=== PATIENT | female | born 1995 | race Hispanic/Latino ===

== ENCOUNTER 2022-01-31 04:39 | Inpatient (IN) | payer OTHER, SELFPAY ==
--- OUTSIDE RECORDS SUMMARY | 2022-01-31 05:49 | XMS REPORT | Continuity of Care Document ---
:1995 Author Organization [facility] t Address [facility] [place] [address] Care Team Providers Name Role Phone Tavia Meredith Primary Care Physician INDUCTION Attending Clinician Unavailable LOEWENTHAL Attending Clinician Unavailable LOEWENTHAL Attending Clinician Unavailable Provider, Temp Attending Clinician Unavailable Tavia PACE Attending Clinician Unavailable Tavia Meredith Attending Clinician Lab Attending Clinician Unavailable Celina Quiros Attending Clinician Celina MARROQUIN Attending Clinician Unavailable Payers Payer Name Policy Type Policy Number Effective Date Expiration Date [facility] [id number] 2021 MOM CHIP MICHELLE LOW 00:00:00 [employer] Problems Condition Condition Condition Status Onset Resolution Last Treating Co mments Source Name Details Category Date Date Treatment Clinician Date Headache Headache Disease Active Unive [place] 3[place] Placenta Placenta Disease Active Overview: Un veda previa in previa in 2-02 Formattin i ty of second second 00:00: g of this [place] trimester trimester 00 note [facility] might be Branch different from the original. lateral previa see usg report 09/2021, resolved Supervisio Supervisio Disease Active 2020-07 U ximena n of n of 2-20 ity of high[place]risk [place] [facility] Branch Obesity in Obesity in Disease Active 2020-07 U nivers 2-20 ity of 00:00: [place] 00 Medical Branch Multiparit Multiparit Disease Active 2020-07 U nivers y y 2-20 ity of 00:00: [place] [address] Medical [place] Allergies, Adverse Reactions, Alerts Allergy Allergy Status Severity Reaction(s) Onset Inactive Treating Comm ents Source Name Type Date Date Clinician NO KNOWN Drug Active Univers ALLERGIE Class ity of S [facility] Social History Social Habit Start Date Stop Date Quantity Comments Source ASSERTION 2021-05-18 University of 00:00:00 [place] [facility] History SDOH University o f Alcohol Std [place] Medical Drinks Branch History SDOH University o f Alcohol Binge [place] Medic al Branch History SDNV University o f Alcohol Comment [place] Med ical Branch Exposure to 2022-01-18 2022-01-28 Not sure [facility] SARS-CoV-2 00:00:00 15:02:00 [facility] (event) Branch Alcohol intake 2022-01-28 2022-01-28 Lifetime University of 00:00:00 00:00:00 non-drinker [facility] (finding) [place] Tobacco use and 2022-01-21 2022-01-21 Smokeless tobacco Un iversity of exposure 00:00:00 00:00:00 non-user [facility] History SDOH 2021-06-29 2021-06-29 1 University o f Alcohol Frequency [facility]:00:00 [facility] [place] Sex Assigned At [birth year] Universit y of 00:00:00 00:00:00 [facility] Smoking Status Start Date Stop Date Source Never smoked tobacco [facility] Medications Ordered Filled Start Stop Current Ordering Indication Dosage Frequency Signature Comments Components Source Medication Medication Date Date Medication? Clinician (SIG) Name Name proMETHazin 2020-07 Yes [id number] 25mg Take 1 Univers e 25 mg 2-20 tablet by ity of tablet 00:00: mouth [place] 00 every 6 Medical (six) Branch hours as needed for Nausea and Vomiting (N/V). proMETHazin 2020-07 Yes [id number] 25mg Take 1 Univers e 25 mg 2-20 tablet by ity of tablet 00:00: mouth [place] 00 every 6 Medical (six) Branch hours as needed for Nausea and Vomiting (N/V). proMETHazin 2020-07 Yes [id number] 25mg Take 1 Univers e 25 mg 2-20 tablet by ity of tablet 00:00: mouth [place] 00 every 6 Medical (six) Branch hours as needed for Nausea and Vomiting (N/V). proMETHazin 2020-07 Yes [id number] 25mg Take 1 Univers e 25 mg 2-20 tablet by ity of tablet 00:00: mouth [place] 00 every 6 Medical (six) Branch hours as needed for Nausea and Vomiting (N/V). Immunizations Ordered Filled Immunization Date Status Comments [facility] e Immunization Name Name TDAP 2021-11-25 Completed University of 00:00:00 [facility] TDAP 2021-11-25 Completed University of 00:00:00 [facility] TDAP 2021-11-25 Completed University of 00:00:00 [facility] TDAP 2021-11-25 Completed University of 00:00:00 [facility] Influenza Virus 2021-06-29 Completed Universit y of Vaccine Quad .5 mL 00:00:00 [facility] 6+ MO Branch PPD (TB) 2021-06-29 Completed University of 00:00:00 [facility] Influenza Virus 2021-06-29 Completed Universit y of Vaccine [place] .5 mL 00:00:00 [facility] 6+ MO Branch PPD (TB) 2021-06-29 Completed University of 00:00:00 [facility] Influenza Virus 2021-06-29 Completed Universit y of Vaccine [place] .5 mL 00:00:00 [facility] 6+ MO Branch PPD (TB) 2021-06-29 Completed University of 00:00:00 [facility] Influenza Virus 2021-06-29 Completed Universit y of Vaccine [place] .5 mL 00:00:00 [facility] 6+ MO Branch PPD (TB) 2021-06-29 Completed University of 00:00:00 [facility] Vital Signs Vital Name Observation Time Observation Value Comments Source Systolic blood 2022-01-28 20:03:00 120 mm[Hg] Univer sity of pressure [facility] Diastolic blood 2022-01-28 20:03:00 80 mm[Hg] Unive rsity of pressure [facility] Heart rate 2022-01-28 20:00:00 105 /min [facility] Body temperature 2022-01-28 20:00:00 36.06 [facility] Univ ersity of [facility] Respiratory rate 2022-01-28 20:00:00 18 /min Univ ersity of [facility] Body height 2022-01-28 20:00:00 162.6 cm Universi ty of [facility] Body weight 2022-01-28 20:00:00 93.713 kg Universi ty of [facility] BMI 2022-01-28 20:00:00 35.46 kg/m2 Universi ty [facility] Systolic blood 2022-01-21 18:25:00 116 mm[Hg] Univer sity of pressure [facility] Diastolic blood 2022-01-21 18:25:00 73 mm[Hg] Unive rsity of pressure [facility] Heart rate 2022-01-21 18:25:00 93 /min Universi ty of [facility] Body temperature 2022-01-21 18:25:00 36.33 [facility] Res[facility] rate 2022-01-21 18:25:00 18 /min [facility] ersity of [facility] Body height 2022-01-21 18:25:00 162.6 cm Universi ty of [facility] Body weight 2022-01-21 18:25:00 93.441 kg Universi ty of [facility] BMI 2022-01-21 18:25:00 35.36 kg/m2 Universi ty [facility] Procedures Procedure Date / Time Performed Performing Clinician Sourc e POCT URINALYSIS 2022-01-28 20:05:00 Cynthia Pace [facility] POCT URINALYSIS 2022-01-21 18:28:00 Cynthia Pace [facility] Encounters Start End Encounter Admission Attending Care Care Encounter Source Date/Time Date/Time Type Type Clinicians Facility Department ID 2022-02-04 2022-02-04 Outpatient INDUCTION, [facility] [id number] Univers 19:30:00 19:30:00 [facility] [id number] [facility]22-[facility] 2022-01-28 Outpatient R QUEENIE NIXON [facility] [id number] Univers 14:45:00 16:03:35 [facility] 2022-01-28 2022-01-28 Routine Provider, Glenn [facility] [id number] Univers 14:45:00 16:03:35 Queenie Nixon SENIOR ADMINISTRATIVE ASSOCIATE [id number] ity of Visit REGIONAL [id number] Jean as MATERNAL [id number] [facility] & CHILD [address] [place] [address] 2022-01-28 2022-01-28 Outpatient R [facility] [id number] Univers 14:45:00 14:45:00 [id number] ity [facility] 2022-01-25 2022-01-25 Outpatient R [facility] [id number] Univers 14:45:00 14:45:00 CYNTHIA [id number] tyrelly o [facility] 2022-01-21 2022-01-21 [facility] [id number] Univers 13:00:00 13:42:06 CYNTHIA villarreal o [facility] 2022-01-21 2022-01-21 Routine [facility] [id number] Univers 13:00:00 13:42:06 Cynthia Squires SENIOR ADMINISTRATIVE ASSOCIATE [id number] ity of Visit REGIONAL [id number] Jean as MATERNAL [id number] [facility] & [address] 2022-01-18 2022-01-18 Pupil Personnel Worker Lab, Glenn [facility] [id number] Univers 13:15:00 13:30:00 Visit Renee Marroquin SENIOR ADMINISTRATIVE ASSOCIATE [id number] ity of REGIONAL [id number] Jean as MATERNAL [id number] [facility] & CHILD [address] [place] [address] 2022-01-18 2022-01-18 Outpatient R RENEE MARROQUIN [facility] [id number] Univers 13:15:00 13:15:00 RENEE MARROQUIN [facility] 2022-01-15 2022-01-15 [facility] [id number] Univers 00:00:00 00:00:00 Cynthia C SENIOR ADMINISTRATIVE ASSOCIATE [id number] [facility] [id number] Jean as MATERNAL [id number] [facility] ical & CHILD [address] [place] [address] Results Test Description Test Time Test Comments Results Result Comments Source POCT URINALYSIS W SPECIFIC GRAVITY 2022-01-28 20:05:00 Test Item Value Reference Range Interpretation Comme nts POCT U SP GRAV (test code = 3255) * 1.005-1.025 POCT PH U (test code = 3254) * 5-8 POCT U LEUK EST (test code = 3263) * Negative - Negative POCT U NIT (test code = 3262) * Negative - Negative POCT U PROT (test code = 3259) trace Negative - Negative POCT U GLU (test code = 3256) negative Negative - Negative POCT U KETONE (test code = 3258) * Negative - Negative POCT U UROBILI (test code = 3260) * 0.2-1 POCT U BILI (test code = 3261) * Negative - Negative POCT U BLD (test code = 3257) * Negative - Negative POCT U COLOR (test code = 3266) * POCT U APPEAR (test code = 3267) * [facility] [id number] 18:28:00 Test Item Value Reference Range Interpretation Comments POCT U SP GRAV (test code = 3255) . 1.005-1.025 POCT PH U (test code = 3254) . 5-8 POCT U LEUK EST (test code = 3263) . Negative - Negative POCT U NIT (test code = 3262) . Negative - Negative POCT U PROT (test code = 3259) TRACE Negative - Negative POCT U GLU (test code = 3256) NEG Negative - Negative POCT U KETONE (test code = 3258) . Negative - Negative POCT U UROBILI (test code = 3260) . 0.2-1 POCT U BILI (test code = 3261) . Negative - Negative POCT U BLD (test code = 3257) . Negative - Negative POCT U COLOR (test code = 3266) . POCT U APPEAR (test code = 3267) . [facility]
[2022-01-31] MEDS ORDERED: Ringers Lactate 1,000 ML IV PRN (06:18)
[2022-01-31 06:36] VITALS: BMI 35.3
[2022-01-31 06:41] LABS: Absolute Lymphocytes (CBC) 1.8 K/uL (0.7-4.9); Hematocrit 38.1 % (36.0-45.0); Lymphocytes % 19.6 % (15.3-44.8); MCV 84.1 fL (80-100); MPV 8.5 fL (7.6-11.3); RBC Red Blood Cell Count 4.53 M/uL (3.86-4.86)
[2022-01-31 06:52] LABS: Specific Gravity 1.015 (1.005-1.030); Urine Bilirubin Negative (Negative); Urine Blood Negative (Negative); Urine Clarity Clear (Clear); Urine Color Yellow (Yellow); Urine Glucose Negative (Negative); Urine Protein Negative (Negative); Urine Urobilinogen 0.2 mg/dL (0.2-1.0)
[2022-01-31] MEDS ORDERED: Ringers Lactate 1,000 ML IV SCH (07:00)
[2022-01-31] MEDS ORDERED: miSOPROStoL 100 MCG TAB PO PRN (07:11)
[2022-01-31] MEDS ORDERED: METHYLERGONOVINE 0.2MG/ML AMP IM ONE (07:13)
[2022-01-31] MEDS ORDERED: CARBOPROST TROME 250 MCG/ML IM ONE (07:13)
[2022-01-31] MEDS ORDERED: OXYTOCIN/LR 20 UNIT/1,000 ML BAG IV SCH ×2 (09:00→11:00)
[2022-01-31] MEDS ORDERED: ZOLPIDEM TARTRATE 5 MG TABLET PO PRN (10:23)
[2022-01-31] MEDS ORDERED: Oxycodone HCl/Acetaminophen 1 TAB TAB PO PRN (10:23)
[2022-01-31] MEDS ORDERED: METHYLERGONOVINE 0.2MG/ML AMP IM PRN (10:23)
[2022-01-31] MEDS ORDERED: DOCUSATE NA/SENNA CONC 1 TAB PO PRN (10:23)
[2022-01-31] MEDS ORDERED: ONDANSETRON 4 MG (ODT) TAB PO PRN (10:23)
[2022-01-31] MEDS ORDERED: CARBOPROST TROME 250 MCG/ML IM PRN (10:23)
[2022-01-31] MEDS ORDERED: IBUPROFEN 600 MG TAB PO PRN (10:30)
--- NOTE | 2022-01-31 12:11 | DN ---
Date of Procedure: 01/31/2022 Surgeon: Bill Estrella Final Diagnoses: 1.Intrauterine , 38 weeks of gestation. 2.Normal vaginal delivery. 3.Single live . Procedure In Detail: Lori was admitting to the hospital in active phase of labor, term . She had artificial rupture of membrane at about 6-7 cm dilated, 90% effaced, and -2 in station, gilson r amniotic fluid. About an hour later, she was ready for second stage of labor. Her legs were place d up on the stirrups, vaginal area prepped and washed with dilute Betadine prep and she was draped in a sterile fashion. With maternal pushes, 's head quickly descended and crowned with gentle de la rosa pport on the perineum. Baby's head delivered. There was no nuchal cord followed by delivery of the shoulders. Baby presented ANGELICA position. Delivery was controlled and uncomplicated, delivered in a s afe fashion. A male baby delivered with weight 7 pounds 1 ounces, 3196 g, 17-3/4th inches long and A pgar scores of 9 and 9. Placenta delivered intact in Schultze presentation. There was no episiotomy . No tears. QBL is 358 cc. A well baby boy delivered. No complications. BW/MODL Voice ID: [id number] Report ID: [id number]
[2022-02-01 00:40] LABS: RPR (Rapid Plasma Reagin) NON-REACT (NON-REACT)
--- NOTE | 2022-02-01 09:52 | DS ---
Date of Discharge: 02/01/2022 Final Discharge Diagnoses: 1.Intrauterine , 38 weeks of gestation, delivered. 2.Normal vaginal delivery. 3.Single live . Hospital Course: Lori Nugent is a 26-year-old Arabic-speaking female, G5, P4, due date A ugust 1st, term , came into the hospital in labor. Her labor progressed and she went on and had a normal vaginal delivery. She had a boy baby with scores of 9 and 9 and weight 7 pounds 1 ounce. There was no episiotomy, no tears, and she recovered very well. She is doing both breast-f eeding and bottle-feeding. There was a good evidence of maternal bonding. During the next day , I evaluated the patient. Her uterus was firm with a minimum vaginal lochia. Discharge exam was no rmal. Therefore, instruction was given with a Arabic translation. She will be discharged to home i n good and stable conditions and prescription of ibuprofen 600 mg #20 one tab p.o. t.i.d. p.r.n. for pain and she may continue vitamin every day, and she will be followed up at her clinic in 4- 6 weeks. A prescription was given to her and she was sent home in good and stable condition. BW/MODL Voice ID: [id number] Report ID: [id number]
[2022-02-01 11:11] VITALS: BP 125/70; TEMP 97.6
[2022-02-04 05:31] LABS: HBsAG Nonreactive (Nonreactive)
== END 2022-02-01 12:25 | disposition home or self-care (01) | DRG 807 ==
LOC: L&D 04:39 → 2ND-WC 05:46 → UNDOADMIN 05:46 → 2ND-WC 05:50
PROVIDERS: ADMIT Obstetrics & Gynecology; ATTEND Obstetrics & Gynecology
PROC: 10E0XZZ Delivery of Products of Conception, External Approach (ICD-10-PCS; principal; 2022-01-31)
PROC: 10907ZC Drainage of Amniotic Fluid, Therapeutic from Products of Conception, Via Natural or Artificial Opening (ICD-10-PCS; 2022-01-31)
DX: O80 Encounter for full-term uncomplicated delivery (principal); Z37.0 Single live birth; Z3A.38 38 weeks gestation of pregnancy; O72.1 Other immediate postpartum hemorrhage
CPT/HCPCS: 36415; 81003; 82947; 85025; 86592; 86850; 86900; 86901; 87340; G0433; J2210; J2590